=== PATIENT | female | born 1960 | race Caucasian/White ===

== ENCOUNTER → 2017-09-26 | Outpatient (CLI) | payer BC, OTHER ==
--- NOTE | 2017-09-26 09:29 | DIAGNOSTIC IMAGING REPORT ---
R FOOT MIN 3 VIEWS CLINICAL HISTORY: Right foot pain COMPARISON: None. DISCUSSION: No acute fractures or dislocations are visualized. There is a prominent plantar calcaneal spur. There is a 5 mm lytic focus within the base of the proximal phalanx the great toe. This demonstrates a sclerotic margin and appears nonaggressive. There is no erosive disease. IMPRESSION: 1. No acute fractures. 2. No evidence of erosive disease 3. Plantar calcaneal spur Electronically signed by: Isaak Rivera M.D. 09/26/2017 9:28 AM Dictated Date/Time: 09/26/2017 9:27 AM
== END | disposition home or self-care (01) ==
LOC: C.RDSM 09:23
PROVIDERS: ATTEND Physician Assistant
DX: M79.671 Pain in right foot (principal); M77.31 Calcaneal spur, right foot